=== PATIENT | female | born 1965 | race Caucasian/White ===

== ENCOUNTER 2020-05-13 17:13 | Observation (INO) ==
[2020-05-13] MEDS ORDERED: *HR* FentaNYL (PF) 100 MCG/2 ML VIAL IVP ONE (17:36)
[2020-05-13] MEDS ORDERED: Isovue-370 500 ML BOTTLE IVP ONE (17:36)
[2020-05-13] MEDS ORDERED: 0.9 % Sodium Chloride 1,000 ML IVC ONE (17:36)
[2020-05-13 18:02] LABS: Basophils # 0.1 K/mcL (0.0-0.2); Basophils % 0.5 %; Eosinophils # 0.1 K/mcL (0.0-0.6); Eosinophils % 0.5 %; Hemoglobin 12.2 g/dL (11.5-15.4); Immature Granulocytes % 0.3 % (0-4); Lymphocytes # 1.7 K/mcL (0.6-4.6); Lymphocytes % 15.7 %; Mean Corpuscular HGB Conc 33.9 g/dL (31.6-35.5); Mean Corpuscular Hemoglobin 30.9 pg (28.0-33.3); Mean Corpuscular Volume 91.1 fL (83.0-100.0); Mean Platelet Volume 9.6 fL (9.4-12.4); Monocytes # 0.8 K/mcL (0.0-1.3); Neutrophils # 8.3 K/mcL (1.6-8.9); Platelet Count 269 K/mcL (140-400); Red Blood Count 3.95 M/mcL (3.82-4.97); Red Cell Distribution Width 12.1 % (11.5-14.5); White Blood Count 10.9 K/mcL (4.3-11.1)
[2020-05-13 18:15] LABS: Prothrombin Time 11.6 Seconds (9.4-12.1)
[2020-05-13 18:17] LABS: Activated Partial Thrombo Time 35.2 Seconds (26.0-36.0)
[2020-05-13 18:22] LABS: Alanine Aminotransferase 12 Units/L (7-52); Albumin 3.9 g/dL (3.5-5.7); Albumin/Globulin Ratio 1.4 (1.1-2.2); Alkaline Phosphatase 72 Units/L (34-104); Aspartate Amino Transferase 14 Units/L (13-39); BUN/Creatinine Ratio 18 (6-26); Bilirubin,Total 0.5 mg/dL (0.3-1.0); Blood Urea Nitrogen 14 mg/dL (6-20); Calcium 8.9 mg/dL (8.6-10.3); Carbon Dioxide 28 mEq/L (23-29); Chloride 103 mEq/L (98-107); Globulin 2.8 g/dL (2.4-3.5); Glucose 113 mg/dL (70-105); Osmolality,Calculated 287 (280-300); Potassium 3.5 mEq/L (3.5-5.1); Sodium 138 mEq/L (136-145); Total Protein 6.7 g/dL (6.4-8.9); eGFR For African Americans > 60 (> 60); eGFR For Non-African Americans > 60 (> 60)
[2020-05-13 18:30] LABS: Bilirubin,Urine Negative (Negative); Blood,Urine Small (Negative); Clarity,Urine Clear (Clear); Color,Urine Colorless (Yellow); Glucose,Urine (UA) Normal (Normal); Ketones,Urine Trace mg/dL (Negative); Leukocyte Esterase,Urine Small (Negative); Mucus,Urine Few per lpf (None-Few); Nitrite,Urine Negative (Negative); Protein,Urine Negative (Neg-Trace); RBC,Urine 0-3 per hpf (0-3); Specific Gravity,Urine 1.013 (1.010-1.025); Squamous Epithelial Cell,Urine Few per hpf (None-Few); Urobilinogen,Urine Normal (Normal)
[2020-05-13] MEDS ORDERED: MetroNIDAZOLE 500 MG/100 ML 500 MG/100 ML BAG IVPB ONE (19:08)
[2020-05-13] MEDS ORDERED: *HR* HYDROmorphone (PF) 1 MG/ML SYRINGE IVP ONE (19:08)
[2020-05-13] MEDS ORDERED: Naloxone 0.4 MG/ML INJ IVP PRN (21:10)
[2020-05-13] MEDS ORDERED: Melatonin 3 MG TABLET PO PRN (21:10)
[2020-05-13] MEDS: 0.9 % Sodium Chloride 1,000 ML IVC SCH (21:35)
[2020-05-14] MEDS: MetroNIDAZOLE 500 MG/100 ML 500 MG/100 ML BAG IVPB SCH ×3 (03:34→18:18)
[2020-05-14] MEDS: 0.9 % Sodium Chloride 1,000 ML IVC SCH (04:55)
[2020-05-14] MEDS: Ondansetron 4 MG/2 ML VIAL IVP PRN ×2 (06:59→21:10)
[2020-05-14 07:51] LABS: Basophils % 0.4 %; Eosinophils % 0.4 %; Hematocrit 31.5 % (35.3-44.9); Immature Granulocytes % 0.4 % (0-4); Lymphocytes # 2.1 K/mcL (0.6-4.6); Lymphocytes % 18.1 %; Mean Corpuscular HGB Conc 33.3 g/dL (31.6-35.5); Mean Corpuscular Hemoglobin 31.3 pg (28.0-33.3); Mean Corpuscular Volume 93.8 fL (83.0-100.0); Mean Platelet Volume 9.8 fL (9.4-12.4); Monocytes # 0.9 K/mcL (0.0-1.3); Monocytes % 7.6 %; Neutrophils # 8.4 K/mcL (1.6-8.9); Platelet Count 239 K/mcL (140-400); Red Blood Count 3.36 M/mcL (3.82-4.97); Red Cell Distribution Width 12.4 % (11.5-14.5); Segmented Neutrophils % 73.1 %; White Blood Count 11.4 K/mcL (4.3-11.1)
[2020-05-14 07:55] LABS: Hemoglobin 10.5 g/dL (11.5-15.4)
[2020-05-14] MEDS ORDERED: *HR* Dextrose 50 % in Water (Vial) 50 ML VIAL IVP PRN (07:56)
[2020-05-14] MEDS ORDERED: D5% in Water 1,000 ML IVC PRN (07:56)
[2020-05-14] MEDS ORDERED: Dextrose Gel 15 GM/37.5 ML TUBE PO PRN ×2 (07:56)
[2020-05-14 08:08] LABS: BUN/Creatinine Ratio 16 (6-26); Blood Urea Nitrogen 11 mg/dL (6-20); Carbon Dioxide 23 mEq/L (23-29); Chloride 108 mEq/L (98-107); Glucose 105 mg/dL (70-105); Magnesium 1.8 mg/dL (1.6-2.6); Osmolality,Calculated 286 (280-300); Phosphorous 3.1 mg/dL (2.7-4.5); Potassium 3.5 mEq/L (3.5-5.1); Sodium 138 mEq/L (136-145); eGFR For African Americans > 60 (> 60); eGFR For Non-African Americans > 60 (> 60)
[2020-05-14] MEDS ORDERED: Metoclopramide 10 MG/2 ML VIAL IVP PRN (10:04)
[2020-05-14] MEDS: Insulin LISPRO 300 UNITS/3 ML VIAL SUBQ SCH ×2 (12:43→17:18)
[2020-05-14] MEDS ORDERED: Acetaminophen IV 1,000 MG/100 ML BAG IVPB ONE (12:47)
[2020-05-14] MEDS ORDERED: 0.9 % Sodium Chloride 1,000 ML IVC SCH (12:55)
[2020-05-14] MEDS: D5% in Lactated Ringers 1,000 ML IVC SCH (13:21)
[2020-05-14] MEDS: *HR* Heparin 5,000 UNIT/ML VIAL SQ SCH ×2 (13:45→21:25)
[2020-05-15] MEDS: Insulin LISPRO 300 UNITS/3 ML VIAL SUBQ SCH ×4 (02:55→18:12)
[2020-05-15] MEDS: D5% in Lactated Ringers 1,000 ML IVC SCH (03:24)
[2020-05-15] MEDS: MetroNIDAZOLE 500 MG/100 ML 500 MG/100 ML BAG IVPB SCH ×3 (03:25→18:18)
[2020-05-15] MEDS: Pantoprazole 40 MG VIAL IVP SCH ×2 (06:11→06:14)
[2020-05-15] MEDS: *HR* Heparin 5,000 UNIT/ML VIAL SQ SCH ×3 (06:12→20:33)
[2020-05-15] MEDS: Ondansetron 4 MG/2 ML VIAL IVP PRN (08:06)
[2020-05-15] MEDS: Ondansetron 4 MG/2 ML VIAL IVP SCH ×3 (11:11→19:40)
[2020-05-15] MEDS ORDERED: Acetaminophen 325 MG TABLET PO PRN (13:41)
[2020-05-16] MEDS: Insulin LISPRO 300 UNITS/3 ML VIAL SUBQ SCH ×3 (00:30→11:37)
[2020-05-16] MEDS: Ondansetron 4 MG/2 ML VIAL IVP SCH ×2 (02:46→10:52)
[2020-05-16] MEDS: MetroNIDAZOLE 500 MG/100 ML 500 MG/100 ML BAG IVPB SCH ×2 (02:47→11:23)
[2020-05-16 05:39] LABS: Basophils % 0.4 %; Eosinophils # 0.1 K/mcL (0.0-0.6); Eosinophils % 0.8 %; Hematocrit 30.1 % (35.3-44.9); Immature Granulocytes % 0.4 % (0-4); Lymphocytes # 2.5 K/mcL (0.6-4.6); Lymphocytes % 35.1 %; Mean Corpuscular HGB Conc 33.2 g/dL (31.6-35.5); Mean Corpuscular Hemoglobin 30.9 pg (28.0-33.3); Mean Corpuscular Volume 92.9 fL (83.0-100.0); Mean Platelet Volume 9.8 fL (9.4-12.4); Monocytes # 0.4 K/mcL (0.0-1.3); Monocytes % 6.1 %; Platelet Count 239 K/mcL (140-400); Red Blood Count 3.24 M/mcL (3.82-4.97); Segmented Neutrophils % 57.2 %; White Blood Count 7.1 K/mcL (4.3-11.1)
[2020-05-16] MEDS: *HR* Heparin 5,000 UNIT/ML VIAL SQ SCH ×2 (07:01→12:14)
[2020-05-16 07:39] LABS: BUN/Creatinine Ratio 13 (6-26); Blood Urea Nitrogen 9 mg/dL (6-20); Calcium 8.2 mg/dL (8.6-10.3); Carbon Dioxide 26 mEq/L (23-29); Chloride 108 mEq/L (98-107); Glucose 89 mg/dL (70-105); Magnesium 1.8 mg/dL (1.6-2.6); Osmolality,Calculated 290 (280-300); Phosphorous 2.8 mg/dL (2.7-4.5); Potassium 3.5 mEq/L (3.5-5.1); Sodium 141 mEq/L (136-145); eGFR For African Americans > 60 (> 60); eGFR For Non-African Americans > 60 (> 60)
[2020-05-16] MEDS: Pantoprazole 40 MG VIAL IVP SCH (08:24)
[2020-05-16 10:26] VITALS: BP 114/72
== END 2020-05-16 14:04 | disposition home or self-care (01) ==
LOC: 3ANU 17:13 → EMEROOARM 17:13 → SUATTDRO 19:56 → 3ANU 20:33
PROVIDERS: ADMIT Family Medicine; ATTEND Internal Medicine